=== PATIENT | female | born 1970 | race Two or more races ===

== ENCOUNTER 2020-10-26 15:52 | Outpatient (REF) | payer OTHER, SELFPAY | END 2020-10-26 15:53 | disposition home or self-care (01) | LOC: HO.LAB 15:52 | PROVIDERS: Visit Provider Internal Medicine | DX: Z20.828 Contact with and (suspected) exposure to other viral communicable diseases (principal) | CPT/HCPCS: C9803; U0003 ==

== ENCOUNTER 2024-10-31 09:30 | Outpatient (AMB) | payer OTHER, SELFPAY ==
[2024-10-31 09:35] VITALS: BP 122/64; PULSE 78; O2SAT 97; BMI 26.2
--- NOTE | 2024-10-31 09:35 | A.OFFVIS_ITS ---
Vital Signs 10/31/24 09:35 Height 5 ft 5 in Weight 157 lb 6.561 oz BMI 26.2 BP 122/64 Blood Pressure Location Lt brachial Position Sitting Pulse 78 Pulse Source Pulse Oximeter Pulse Oximetry (%) 97 Oxygen Delivery Method Room Air Intake Visit Reasons: RA/LM Intake Note: Patient is here to follow up on RA, with pain in hips and shoulders. Allergies No Known Allergies Allergy (Verified 10/31/24 09:39) HPI HPI RA/LM: Details: Bilateral elbow pain L>R Since May progressively getting worse. Activity with using her arms exacerbates pain. She is having difficulty sleeping on her left side Hands are weak. Dr. Rees took her off of SSZ last visit in 07/2024. She has more MS (1.5 hr), joint pain and hand swelling. [facility] Medical History (Updated 10/31/24 @ 21:35 by Lamont Worthington MD) Kidney stone Asthma Achilles bursitis Restless legs syndrome Fibromyalgia Diabetes Pituitary abnormality Rheumatoid arthritis Family History (Updated 10/31/24 @ 09:45 by Caty Harris CMA) Mother Diabetes Arthritis Social History (Updated 10/31/24 @ 09:46 by Caty Harris CMA) Alcohol intake: never Patient Tobacco Use Status: Never used Tobacco Review of Systems Const All systems reviewed & are unremarkable except as noted in HPI and below Physical Exam Vital Signs: Last Vital Signs Pulse 78 10/31/24 09:35 BP 122/64 10/31/24 09:35 Pulse Ox 97 10/31/24 09:35 Oxygen Delivery Method Room Air 10/31/24 09:35 BMI result Body Mass Index 26.2 Const Other: General: Comfortable CVS: RRR Respiratory: clear to auscultation bilaterally. Good respiratory effort Skin: No lesions seen MSK: Tender right wrist. No tenderness of small joints in her hands. No synovitis noticed. Tender bilateral lateral epicondyles. No pain with resisted wrist flexion or extension. Good range of motion of upper extremities. Bilateral trochanteric bursa tenderness was found good range of motion of lower extremities. Office Procedures AMB Joint Injection/Aspiration Joint Injection/Aspiration Details: Left trochanteric bursa Prep: site was prepped using aseptic technique Injected: 40 mg of, Kenalog, with 1 mL of and 1% plain lidocaine Procedure: The patient tolerated the procedure well Coding 70156 - Large joint Procedure code (CPT) selection complete Office Meds Kenalog 40 mg/mL suspension for injection Performing Provider: Lamont Worthington MD Performing Location[place] [facility] Administered by: Lamont Worthington MD on 10/31/24 10:32 Dose Route Admin Location Dispensed Lot Number Expiration Date [facility] Manager Hris 40 mg intrabursal 1 mL AP [id number] [employer] lidocaine (PF) 10 mg/mL (1 %) injection solution Performing Provider: Lamont Worthington MD Performing Location[place] [facility] Administered by: Lamont Worthington MD on 10/31/24 10:32 Dose Route Admin Location Dispensed Lot Number Expiration Date [facility] Manager Hris 10 mg Infiltration 2 mL [id number] [facility] Assessment & Plan Assessment & Plan (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 She is experiencing increased joint stiffness and hand pain since being off the sulfasalazine after seeing Dr. Rees who did not feel she had inflammatory arthritis. Code(s): M47.819 - Spondylosis without myelopathy or radiculopathy, site unspecified Category: Medical Plan: Labs for disease and drug monitoring ordered. After lab results are back, I will restart sulfasalazine 500 mg twice a day to prevent progression of her symptoms and reoccurrence of active inflammatory arthritis Return to clinic in 3 months (2) Other senior living (current) drug therapy: Code(s): Z79.899 - Other senior living (current) drug therapy Category: Medical Plan: See above (3) Lateral epicondylitis of both elbows: Comment: Bilateral suspected. We discussed conservative management Code(s): M77.11 - Lateral epicondylitis, right elbow; M77.12 - Lateral epicondylitis, left elbow Category: Medical Plan: Elbow support bands prescribed PT referral Apply diclofenac gel 1% to affected area 2 to 3 times a day Ice elbows twice a day Return to clinic in 3 months Consider cortisone injection at follow-up visit Contraindication to oral NSAIDs due to history of gastric bypass (4) Trochanteric bursitis, left hip: Comment: Uncontrolled pain Code(s): M70.62 - Trochanteric bursitis, left hip Category: Medical Plan: Trochanteric bursa injection given Orders: Orders Aspartate Amino Transferase Today Z79.899 - Other exterminator termite (current) drug therapy Erythrocyte Sedimentation Rate Today Z79.899 - Other exterminator termite (current) drug therapy Creatinine Today Z79.899 - Other exterminator termite (current) drug therapy C Reactive Protein Today Z79.899 - Other exterminator termite (current) drug therapy PT Evaluation and Treatment Today M77.11 - Lateral epicondylitis, right elbow, M77.12 - Lateral epicondylitis, left elbow Alanine Aminotransferase Today M47.819 - Spondylosis without myelopathy or radiculopathy, site unspecified, Z79.899 - Other senior living (current) drug therapy Complete Blood Count Auto Diff Today Z79.89 - Other exterminator termite (current) drug therapy Hepatitis B,C Profile Today Z.89 - Other exterminator termite (current) drug therapy T Spot TB Today Z79.89 - Other senior living (current) drug therapy AMB Joint Injection/Aspiration Today M70.62 - Trochanteric bursitis, left hip Medications: New [elbow support band] As directed 2 ea 0RF Dx: lateral epicondylitis Coding Level of Care Code Est Pt Level 4 (89145) Complex EM visit Add On G2211 Diagnoses Spondyloarthritis M47.819 Other senior living (current) drug therapy Z79. Lateral epicondylitis of both elbows M77.11; M77.12 Trochanteric bursitis, left hip M70.62 CPT Codes Coding - 61035 Large joint: 08866 - Large joint ([id number])
== END 2024-10-31 10:34 | disposition home or self-care (01) ==
PROVIDERS: Visit Provider Internal Medicine Rheumatology
DX: M47.819 Spondylosis without myelopathy or radiculopathy, site unspecified (principal); Z79.899 Other long term (current) drug therapy; M70.62 Trochanteric bursitis, left hip; M77.11 Lateral epicondylitis, right elbow; M77.12 Lateral epicondylitis, left elbow
CPT/HCPCS: 20610; 99214

== ENCOUNTER → 2024-10-31 09:30 | Outpatient (BNVA) | payer OTHER, SELFPAY | PROVIDERS: Visit Provider Internal Medicine Rheumatology | DX: M70.62 Trochanteric bursitis, left hip (principal); M77.11 Lateral epicondylitis, right elbow; M77.12 Lateral epicondylitis, left elbow; M47.819 Spondylosis without myelopathy or radiculopathy, site unspecified; Z79.899 Other long term (current) drug therapy | CPT/HCPCS: 20610; 99212; J2003; J3300 ==

== ENCOUNTER 2025-02-25 08:49 | Outpatient (REF) | payer OTHER, SELFPAY ==
--- OUTSIDE RECORDS SUMMARY | 2025-02-25 11:39 | XMS_ITS | Clinical Summary ---
Author Organization [facility] Address [address] [place] [phone] Phone Care Team Providers Care Gaming Commissioner Name Role Phone Winston Dillard MD Primary Care Provider [phone] Allergies Active Allergy Reactions Criticality Noted Date [...] Gm, 0 Refills, Maintenance, 02/19/24 8:24:00 EDT, [facility] #[id number], Partial fill upon patient request if the prescription is for a schedule II opioid drug., Topically to feet as directe... 4 Active Cholecalciferol (Vitamin D3) 1.25 MG (42762 UT) capsule Take 1 capsule by mouth [...] Replace Required Details, Route to Pharmacy Electronically, [facility] #[id number], 165, cm, 03... 3 Active ARIPiprazole (ABILIFY) [...] [facility] [address] [phone] Migel Menezes MD [facility] [address] Health Maintenance Due Date Last [...] Cancer Screening: Colonoscopy 07/11/2034 07/11/2024 [place] [id number] [employer] [facility] [facility] Care Teams Gaming Commissioner Relationship Specialty Start Date End Date Winston Dillard MD [address] [place] [phone] PCP - General Internal Medicine 07/12/24
--- OUTSIDE RECORDS SUMMARY | 2025-02-25 11:39 | XMS_ITS | Clinical Summary ---
Author Organization [facility] Address [address] [place] [address] Phone Care Team Providers Care Mushroom Press Operator Name Role Phone Jeanette Calix MD Primary Care Provider [phone] Allergies Active Allergy Reactions Criticality Noted Date [...] 2 mL 1 5 02/21/20 25 Discontin u([facility], or Other Facility Administered Medication Ordered [...] Team Description 02/24/2025 Telephone Bariatric Surgery - [address] [phone] Jamal Arriaga MD 01/07/2025 1:15 PM EST Office Visit Bariatric Surgery - [address] [phone] Jamal Arriaga MD Type 2 diabetes mellitus with obesity (CMS/HCC) (Primary Dx); Over weight 12/20/2024 Telephone Bariatric Surgery [address] [phone] Jamal Arriaga MD 12/12/2024 Telephone Bariatric Surgery [address] [phone] Jamal Arriaga MD Med Refill (zepbound) 12/09/2024 Telephone Bariatric Surgery [address] [address] Jamal Arriaga MD prior auth (Prior auth) from Last 3 Months Immunizations Name Administration Dates Next Due Moderna SARS-CoV-2 COVID-19, mRNA, LNP-S, preservative free 03/10/2021,02/10/2021 Pneumococcal polysaccharide 23 valent (Pneumovax 23) 2yo and older 07/12/2005 Td Tetanus diptheria (Tdvax) 7yo and older 07/12 Surgical History Surgery Date Site/Laterality Comments SECTION PROCEDURE: [place] DELIVERY ONLY; COMMENT: times 2 OTHER SURGICAL HISTORY PROCEDURE: [place] LIG/TRNSXJ FLP TUBE ABDL/VAG APPR UNI/BI TUBAL LIGATION PROCEDURE: HISTORICAL TUBAL LIGATION BREAST RECONSTRUCTION PROCEDURE: BREAST RECONSTRUCTION; COMMENT: reduction LAPAROSCOPIC GASTRIC BANDING 2006 PROCEDURE: LAP ADJUSTABLE GASTRIC BAND ESOPHAGOGASTRODUODENOSCOPY 2011 PROCEDURE: [place] ESOPHAGOGASTRODUODENOSCOPY TRANSORAL DIAGNOSTIC; COMMENT: normal at [facility] ESOPHAGOGASTRODUODENOSCOPY 03/05/2014 PROCEDURE: [place] ESOPHAGOGASTRODUODENOSCOPY TRANSORAL DIAGNOSTIC; COMMENT: Normal post gastric [...] AM EDT Office Visit Bariatric Surgery - [place] [address] [place] [phone] Jamal Arriaga MD [address] [place] [address] Health Maintenance Due Date Last Done Comments [...] Result * Annual BMP Blood Test (07/18/2019) [facility] Annual BMP Blood Test Abstracted [facility] Provider HEALTH MAINTENANCE Final Result * Colonoscopy (09/18/2015) [facility] Colonoscopy No Interpretation , Abstracted Anatomical Region Laterality Modality Other [facility] Provider HEALTH MAINTENANCE Final Result * (ABNORMAL) Lipid panel (06/16/2015) [facility] LDL/HDL Ratio 5(A) 0 - 4 Triglycerides 185(A) 0 - 150 mg/dL Cholesterol 181 0 - 200 mg/dL HDL 36(A) >=40 mg/dL LDL Cholesterol 108(A) 0 - 100 mg/dL Blood Venous blood specimen / Unknown [facility] Provider LAB BLOOD ORDERABLES Deja l Result * Cervical Cancer Screening: HPV (05/29/2012) [facility] Cervical Cancer Screening: HPV No Interpretation , Abstracted [facility] Provider HEALTH MAINTENANCE Final Result * Hepatitis C Screening (09/04/2001) [facility] Hepatitis C Screening Abstracted [facility] Provider HEALTH MAINTENANCE Final Result from Last 3 Months or Most Recently Relevant to Health Maintenance Insurance MEDICARE Member Subscriber Plan / Payer (Ef fective 2023-Present) Name:Cayla Linares I Relation to Subscriber:Self Name:Cayla Linares I Payer ID:[id number] Group ID:[id number] Type:Not on file Address: [place] [address] [address] [phone] Care Teams Mushroom Press Operator Relationship Specialty Start Date End Date Jeanette Calix MD [address] [place] [address] PCP - General Internal Medicine 07/18/19
--- OUTSIDE RECORDS SUMMARY | 2025-02-25 11:39 | XMS_ITS | Clinical Summary ---
Author Organization [facility] Address [address] [place] [address] Care Team Providers Care Insulator Tester Name Role Phone Unavailable Primary Care Provider [...] 2014 Imm-Zoster, Recombinant (1 of 2) 2019 [id number]-62 (3 - season) 2024 021, 02/10/2021 Imm-Influenza (#1) 2024 08/26/2020 Alcohol and Drug Screen 11/27/2024 Depression Annual Screen 11/27/2024 Cervical Ablation/Cold-Knife Conization Discontinued Cervical Cryotherapy Discontinued Colposcopy Discontinued Endometrial Biopsy Discontinued Excision/Leep Discontinued HPV Genotyping Discontinued Vaginal Pap Discontinued Vulvoscopy Discontinued [facility]
--- OUTSIDE RECORDS SUMMARY | 2025-02-25 11:39 | XMS_ITS | Encounter Summary ---
Author Organization [facility] Address [address] [place] [address] Care Team Providers Care Nutritional Services Cook Name Role Phone Jeanette Calix MD Primary Care Provider [phone] Encounter Details Date Type Department Care Team ([facility] st Contact Info) Description 02/24/2025 Telephone Bariatric Surgery - [place] [address] [facility] [address] [place] [phone] Jamal Arriaga MD [address] [address] Social History Tobacco Use Types Packs/Day Years [...] AM EDT Office Visit Bariatric Surgery - [place] [address] [facility] [address] [place] [phone] Jamal Arriaga MD [address] [facility] [address] [place] [address] documented as of this encounter Visit Diagnoses Not on filedocumented in this encounter Care Teams Nutritional Services Cook Relationship Specialty Start Date End Date Jeanette Calix MD [address] [place] [address] PCP - General Internal Medicine 07/18/19 documented as of this encounter
[2025-02-25 18:09] LABS: MANUAL DIFF FLAG NO
[2025-02-25 18:55] LABS: Alanine Aminotransferase 20 U/L (0-31); Aspartate Amino Transferase 30 U/L (5-31); C Reactive Protein 0.27 mg/dL (< or = 0.50); Estimated Glomerular Filt Rate > 60
[2025-02-25 19:01] LABS: Basophils Percent Auto 0.6 % (0-2); Eosinophils Absolute Auto 0.1 X10*3/uL (0.0-0.4); Eosinophils Percent Auto 1.7 % (0-4); Hematocrit 34.9 % (37.0-47.0); Hemoglobin 10.8 g/dl (12.0-16.0); Imm Gran Abs Auto 0.01 X10*3/uL (0.00-0.03); Imm Gran Pct Auto 0.2 % (0.0-0.4); Lymphocytes Absolute Auto 1.7 X10*3/uL (1.2-4.9); Lymphocytes Percent Auto 35.9 % (20-40); Mean Corpuscular HGB Conc 30.9 g/dl (31.0-35.0); Mean Corpuscular Hemoglobin 21.8 pg (27.0-33.0); Mean Corpuscular Volume 70.4 fL (80.0-98.0); Mean Platelet Volume 11.4 fL (9.4-12.3); Monocytes Absolute Auto 0.4 X10*3/uL (0.1-1.2); Neutrophils Absolute Auto 2.5 x10*3/uL (2.0-8.3); Neutrophils Percent Auto 53.6 % (45-73); Platelet Count 227 X10*3/uL (160-400); Red Blood Count 4.96 X10*6/uL (4.20-5.50); Red Cell Distribution Width 20.3 % (11.0-16.0); White Blood Count 4.7 X10*3/uL (4.8-10.8)
[2025-02-25 19:32] LABS: Erythrocyte Sedimentation Rate 14 MM/HR (0-20)
[2025-02-26 08:34] LABS: HBS Num1 0.07 mIU/mL (0-7.99); HBc Num1 0.11 S/CO (0.00-0.79); HBsAGNum1 0.39 S/CO (0.00-0.99); Hepatitis B Core Antibody Nonreactive (Nonreactive); Hepatitis B Surface Antigen Negative (Negative); ~HepC Num1 0.15 S/CO (0.00-0.79); ~Hepatitis B Surface Antibody NONREACTIVE (Nonreactive); ~Hepatitis C Antibody Nonreactive (Nonreactive)
[2025-02-28 17:54] LABS: TS Negative Control Passed; TS Panel A 0; TS Panel B 0; TS Positive Control Passed; TSpotTB Negative (Negative)
== END 2025-02-25 08:50 | disposition home or self-care (01) ==
LOC: HO.HKASLDS 08:49
PROVIDERS: Visit Provider Internal Medicine Rheumatology
DX: M47.819 Spondylosis without myelopathy or radiculopathy, site unspecified (principal); Z79.899 Other long term (current) drug therapy; M53.3 Sacrococcygeal disorders, not elsewhere classified; M70.61 Trochanteric bursitis, right hip; M70.62 Trochanteric bursitis, left hip
CPT/HCPCS: 36415; 82565; 84450; 84460; 85025; 85652; 86140; 86481; 86704; 86706; 86803; 87340; 99212

== ENCOUNTER 2025-02-25 08:49 | Outpatient (AMB) | payer OTHER, SELFPAY ==
--- NOTE | 2025-02-25 08:54 | MHC.OFFVIS ---
Vital Signs 02/25/25 08:55 Height 5 ft 5 in Weight 137 lb 12.623 oz BMI 22.9 BP 118/72 Blood Pressure Location Lt brachial Position Sitting Pulse 77 Pulse Source Pulse Oximeter Pulse Oximetry (%) 99 Oxygen Delivery Method Room Air Intake Visit Reasons: RA Intake Note: Patient presents for RA follow up. Patient complains of hip and shoulder pain. Patient states she could not get labs done, came in yesterday, but lab was closed. Allergies No Known Allergies Allergy (Verified 02/25/25 08:59) HPI HPI RA: Details: SHe did not start PT. She called [facility] and is waiting on appointment Lost 45lb since being on zepbound. SHe does not have pain in right wrist. Still has pain in hands. MS 15 minutes. Pain in coccyx area when sitting. Using donut cushion. She experiences constant right hip pain PFSH Medical History (Updated 02/27/25 @ 22:41 by Lamont Worthington MD) Kidney stone Asthma Achilles bursitis Restless legs syndrome Fibromyalgia Diabetes Pituitary abnormality Rheumatoid arthritis Family History (Updated 10/31/24 @ 09:45 by Caty Harris CMA) Mother Diabetes Arthritis Social History (Updated 10/31/24 @ 09:46 by Caty Harris CMA) Alcohol intake: never Patient Tobacco Use Status: Never used Tobacco Review of Systems Const All systems reviewed & are unremarkable except as noted in HPI and below Physical Exam Vital Signs: Last Vital Signs Pulse 77 02/25/25 08:55 BP 118/72 02/25/25 08:55 Pulse Ox 99 02/25/25 08:55 Oxygen Delivery Method Room Air 02/25/25 08:55 BMI result Body Mass Index 22.9 Const Other: General: Comfortable CVS: RRR Respiratory: clear to auscultation bilaterally. Good respiratory effort Skin: No lesions seen MSK: Tender left MCPs and PIPs. No synovitis noticed. Tender bilateral lateral epicondyles. No pain with resisted wrist flexion or extension. Normal range of motion of upper extremities. Bilateral trochanteric bursa tenderness was found normal range of motion of lower extremities. Tender coccyx. 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 She is experiencing increased joint stiffness and hand pain since being off the sulfasalazine. Code(s): M47.819 - Spondylosis without myelopathy or radiculopathy, site unspecified Category: Medical Plan: Labs prior to starting sulfasalazine ordered After lab results are back, I will send prescription for sulfasalazine 1000 mg b.i.d. three-month supply Return to clinic in 3 months (2) Coccydynia: Code(s): M53.3 - Sacrococcygeal disorders, not elsewhere classified Category: Medical Plan: PT ordered Continue to use donut cushion (3) Greater trochanteric bursitis of both hips: Comment: Right trochanteric bursa pain is greater than left. Code(s): M70.61 - Trochanteric bursitis, right hip; M70.62 - Trochanteric bursitis, left hip Category: Medical Plan: Patient received right trochanteric bursa cortisone injection this visit Return to clinic in 3 months Orders: Orders AMB Joint Injection/Aspiration 02/25/25 M70.61 - Trochanteric bursitis, right hip, M70.62 - Trochanteric bursitis, left hip PT Evaluation and Treatment Today M53.3 - Sacrococcygeal disorders, not elsewhere classified Medications: New lidocaine (PF) 10 mg Infiltration ONCE 1 mL 0RF M70.61 - Trochanteric bursitis, right hip, M70.62 - Trochanteric bursitis, left hip Kenalog (triamcinolone acetonide) 40 mg intrabursal ONCE 1 mL 0RF NS M70.61 - Trochanteric bursitis, right hip, M70.62 - Trochanteric bursitis, left hip Coding Level of Care Code Est Pt Level 4 (56917) Complex EM visit Add On G2211 Diagnoses Spondyloarthritis M47.819 Coccydynia M53.3 Greater trochanteric bursitis of both hips M70.61; M70.62 Time Spent (min) 35
[2025-02-25 08:55] VITALS: BP 118/72; PULSE 77; O2SAT 99; BMI 22.9
--- OUTSIDE RECORDS SUMMARY | 2025-02-25 09:20 | XMS_ITS | Clinical Summary ---
Author Organization [address] [facility] Address [address] [place] [address] Phone Care Team Providers Care Assistant Associate Full Professor Name Role Phone Jeanette Calix MD Primary Care Provider [phone] Allergies Active Allergy Reactions Criticality Noted Date Comments Cabergoline High 09/22/2009 Other Reaction(s): Myalgia and Joint Pain Medications ALBUTEROL INHL Inhale into the lungs. Active fluticasone propionate (FLOVENT INHL) Inhale into the lungs. Active bromocriptine (PARLODEL) 2.5 mg tablet 9 Active cholecalciferol (VITAMIN D-3) 1,250 mcg (50,000 unit) capsule Take 1 Capsule by mouth once a week. 4 Active cyanocobalamin, vitamin B-12, 1,000 mcg tablet, sublingual Place 1 Tablet under the tongue daily. 4 Active doxepin (SINEquan) 150 mg capsule Take 150 mg by mouth at bedtime. Active levothyroxine (SYNTHROID, LEVOTHROID) 125 mcg tablet Take 1 Tab by mouth daily. Take 1.5 tablets on Monday 5 Active linaCLOtide (Linzess) 290 mcg capsule 9 Active LORazepam (ATIVAN) 0.5 mg tablet Take 0.5 mg by mouth at bedtime as needed. Active metFORMIN (GLUCOPHAGE) 500 mg tablet Take 1 Tab by mouth daily. 5 Active ondansetron ODT (ZOFRAN-ODT) 4 mg disintegrating tablet 9 Active sertraline (ZOLOFT) 100 mg tablet Take 100 mg by mouth daily. Active sucralfate (CARAFATE) 1 gram tablet Take 1 Tablet by mouth 4 times daily for 360 days. 4 05/09/20 25 Active tirzepatide, weight loss, (Zepbound) 5 mg/0.5 mL injectionIndicatio ns:Type 2 diabetes mellitus with obesity (CMS/HCC),Over weight Inject 0.5 mL (5 mg total) under the skin every 7 (seven) days. 2 mL 1 5 04/18/20 25 Active tirzepatide, weight loss, (Zepbound) 5 mg/0.5 mL injectionIndicatio ns:Type 2 diabetes mellitus with obesity (CMS/HCC),Over weight Inject 0.5 mL (5 mg total) under the skin every 7 (seven) days. 2 mL 1 5 02/21/20 25 Discontin u([facility], or Other Facility Administered Medication Ordered Dose Route Frequency Start Date End Date Status tirzepatide (weight loss) (ZEPBOUND) injection 5 mgIndications:Over weight 5 mg subQ Every 7 days 01/03/2025 02/21/2025 Discontinued Active Problems Problem Noted Date Diagnosed Date Asthma 11/07/2024 Abdominal wall mass of right upper quadrant 02/2020 Localized edema 04/30/2020 Scar of abdominal skin 02/13/2018 Morbid obesity 12/05/2013 Overview (11/07/2024): BMI 44.01 on 12/24/12. 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 Hypothyroidism 11/17/2005 Controlled type 2 diabetes mellitus without comp lication 11/08/2005 Overview (11/07/2024): Diagnosed 2004 Thyrotoxicosis 11/08/2005 Encounters Date Type Department Care Team Description 02/24/2025 Telephone Bariatric Surgery - [address] [phone] Jamal Arriaga MD 01/07/2025 1:15 PM EST Office Visit Bariatric Surgery - [address] [phone] Jamal Arriaga MD Type 2 diabetes mellitus with obesity (CMS/HCC) (Primary Dx); Over weight 12/20/2024 Telephone Bariatric Surgery [address] [phone] Jamal Arriaga MD 12/12/2024 Telephone Bariatric Surgery [address] [phone] Jamal Arriaga MD Med Refill (zepbound) 12/09/2024 Telephone Bariatric Surgery [address] [phone] Jamal Arriaga MD prior auth (Prior auth) from Last 3 Months Immunizations Name Administration Dates Next Due Moderna SARS-CoV-2 COVID-19, mRNA, LNP-S, preservative free 03/10/2021,02/10/2021 Pneumococcal polysaccharide 23 valent (Pneumovax 23) 2yo and older 07/12/2005 Td Tetanus diptheria (Tdvax) 7yo and older 07/12 Surgical History Surgery Date Site/Laterality Comments SECTION PROCEDURE: MN DELIVERY ONLY; COMMENT: times 2 OTHER SURGICAL HISTORY PROCEDURE: MN LIG/TRNSXJ FLP TUBE ABDL/VAG APPR UNI/BI TUBAL LIGATION PROCEDURE: HISTORICAL TUBAL LIGATION BREAST RECONSTRUCTION PROCEDURE: BREAST RECONSTRUCTION; COMMENT: reduction LAPAROSCOPIC GASTRIC BANDING 2006 PROCEDURE: LAP ADJUSTABLE GASTRIC BAND ESOPHAGOGASTRODUODENOSCOPY 2011 PROCEDURE: MN ESOPHAGOGASTRODUODENOSCOPY TRANSORAL DIAGNOSTIC; COM[place]: [place] [facility] [place] 03/05/2014 PROCEDURE: MN ESOPHAGOGASTRODUODENOSCOPY TRANSORAL DIAGNOSTIC; COMMENT: Normal post gastric bypass appearance Medical History Medical History Date Comments Unspecified asthma(493.90) DX:Un specified asthma(493.90) Other anterior pituitary disorders 07/24/2006 DX:Other anterior pituitary disorders Hypercholesteremia 08/28/2008 DX:Hyperchole steremia Type II or unspecified type diabetes mellitus without mention of complication, not stated as uncontrolled 11/08/2005 DX:Type II or unspecified ty pe diabetes mellitus without mention of complication, not stated as uncontrolled Heart disease, unspecified DX:He art disease, unspecified Thyrotoxicosis without menti on of goiter or other cause, without mention of thyrotoxic crisis or storm 11/08/2005 DX:Thyrotoxicosis withou t mention of goiter or other cause, without mention of thyrotoxic crisis or storm Unspecified hypothyroidism 11/17/2005 DX:Un specified hypothyroidism LAP-BAND surgery status 06/09/2011 DX:LAP-B AND surgery status S/P gastric bypass 06/16/2015 DX:S/P gastri c bypass Family History Medical History Relation Name Comments Blindness Brother Diabetes Brother Diabetes Father Thyroid disease Mother Thyroid disease Sister Cataracts Neg Hx Glaucoma Neg Hx Macular degeneration Neg Hx Strabismus Neg Hx Relation Name Status Comments Brother Alive Father Mother Sister Social History Tobacco Use Types Packs/Day Years Used Date Smoking Tobacco: Never Smokeless Tobacco: Never Alcohol Use Standard Drinks/Week Comments No 0 (1 standard drink = 0.6 oz pur e alcohol) Comments Unknown Sex and Gender Information Value Date Recorded Sex Assigned at Not on file Legal Sex Female 9:10 AM EST Gender Identity Not on file Sexual Orientation Not on file Obstetrics History Last Filed Vital Signs Vital Sign Reading Time Taken Comments Blood Pressure 105/67 01/07/2025 1:31 PM EST Pulse 76 01/07/2025 1:31 PM EST Temperature 36.6 ??C (97.8 ??F) 01/07/2025 1:31 PM ES T Respiratory Rate - - Oxygen Saturation - - Inhaled Oxygen Concentration - - Weight 66.2 kg (146 lb) 01/07/2025 1:31 PM EST Height 165.1 cm (5' 5 ) 01/07/2025 1:31 PM EST Body Mass Index 24.3 01/07/2025 1:31 PM EST Plan of Treatment Upcoming Encounters Date Type Department Care Team (Late st Contact Info) Description 07/15/2025 9:15 AM EDT Office Visit Bariatric Surgery - [place] [address] [place] [phone] Jamal Arriaga MD [address] [place] [address] Health Maintenance Due Date Last Done Comments Breast Cancer Screening 1969 Diabetes: Annual Foot Exam 1979 Diabetes: Annual Retina Eye Exam 1979 Hepatitis B Vaccines (1 of 3 - 19+ 3-dose series) 1988 Pneumococcal Vaccine: 50+ Years (2 of 2 - PCV) 07/12/2006 07/12/2005 Pneumococcal Vaccine: Pediatrics (0 to 5 Years) and At-Risk Patients (6 to 64 Years) (2 of 2 - PCV) 07/12/2006 07/12/2005 Cervical Cancer Screening: Pap Smear 05/29/2015 05/29/2012, 05/29/2012 Zoster Vaccines (1 of 2) 2019 Diabetes: Annual GFR (Glomerular Filtration Rate) 07/18/2020 07/18/2019 Cholesterol Screening (Lipid Panel) 10/30/2022 06/16/2015 Depression Screening 10/30/2022 HIV Screening 10/30/2022 Medicare Annual Wellness Visit 10/30/2022 Social Influencers of Health Screening 10/30/2022 Diabetes: Annual Urine Albumin-Creatinine Ratio (uACR) 11/12/2022 04/30/2020 Diabetes: Blood Sugar Control Test (HGBA1C) 04/16/2024 10/17/2023 COVID-19 Vaccine ( season) 2024 10/04/2021, 03/10/2021, 02/10/2021 Influenza Vaccine (#1) 2024 2, 08/27/2022, 11/15/2021, Additional history exists Colorectal Cancer Screening: Colonoscopy 09/18/2025 09/18/2015 DTaP,Tdap,and Td Vaccines (3 - Td or Tdap) 01/14/2026 01/14/2016, 07/12/2005 Hepatitis C Screening Completed 09/04/2001 HIB Vaccines Aged Out No longer eligi ble based on patient's age to complete this topic HPV Vaccines Aged Out No longer eligi ble based on patient's age to complete this topic Hepatitis A Vaccines Aged Out No long er eligible based on patient's age to complete this topic IPV Vaccines Aged Out No longer eligi ble based on patient's age to complete this topic MMR Vaccines Aged Out No longer eligi ble based on patient's age to complete this topic Meningococcal ACWY Vaccine Aged Out N o longer eligible based on patient's age to complete this topic Meningococcal B Vacine Aged Out No lo nger eligible based on patient's age to complete this topic RSV Immunization Patients Under 20 months Aged Out No longer eligible based on patient's age to complete this topic Varicella Vaccines Aged Out No longer eligible based on patient's age to complete this topic Procedures Procedure Name Priority Date/Time Associated Diagnosis Comments HEMOGLOBIN A1C Routine 10/17/2023 URINE ALBUMIN CREATININE RATIO Routine 04/30/2020 ANNUAL BMP BLOOD TEST Routine 07/18/2019 COLONOSCOPY Routine 09/18/2015 LIPID PANEL Routine 06/16/2015 HPV Routine 05/29/2012 HEPATITIS C SCREENING Routine 09/04/2001 from Last 3 Months or Most Recently Relevant to Health Maintenance Results * Hemoglobin A1c (10/17/2023) Hemoglobin A1C 5.9 <=6.5 % Blood Venous blood specimen / Unknown us Historical Provider LAB BLOOD ORDERABLES Deja l Result * Urine Albumin Creatinine Ratio (04/30/2020) Urine Albumin Creatinine Ratio Abstracted us Historical Provider HEALTH MAINTENANCE Final Result * Annual BMP Blood Test (07/18/2019) [facility] Annual BMP Blood Test Abstracted [facility] Provider HEALTH MAINTENANCE Final Result * Colonoscopy (09/18/2015) [facility] Colonoscopy No Interpretation , Abstracted Anatomical Region Laterality Modality Other [facility] Provider HEALTH MAINTENANCE Final Result * (ABNORMAL) Lipid panel (06/16/2015) [facility] LDL/HDL Ratio 5(A) 0 - 4 Triglycerides 185(A) 0 - 150 mg/dL Cholesterol 181 0 - 200 mg/dL HDL 36(A) >=40 mg/dL LDL Cholesterol 108(A) 0 - 100 mg/dL Blood Venous blood specimen / Unknown [facility] Provider LAB BLOOD ORDERABLES Deja l Result * Cervical Cancer Screening: HPV (05/29/2012) [facility] Cervical Cancer Screening: HPV No Interpretation , Abstracted [facility] Provider HEALTH MAINTENANCE Final Result * Hepatitis C Screening (09/04/2001) [facility] Hepatitis C Screening Abstracted [facility] Provider HEALTH MAINTENANCE Final Result from Last 3 Months or Most Recently Relevant to Health Maintenance Insurance MEDICARE Member Subscriber Plan / Payer (Ef fective 2023-Present) Name:Cayla Linares I Relation to Subscriber:Self Name:Cayla Linares I Payer ID:[id number] Group ID:[id number] Type:Not on file Address: [place] [address] [address] [id number] Care Teams Assistant Associate Full Professor Relationship Specialty Start Date End Date Jeanette Calix MD [address] [place] [address] PCP - General Internal Medicine 07/18/19
--- OUTSIDE RECORDS SUMMARY | 2025-02-25 09:20 | XMS_ITS | Encounter Summary ---
Author Organization [facility] Address [address] [place] [address] Care Team Providers Care Clinical Support Specialist Name Role Phone Jeanette Calix MD Primary Care Provider [phone] Encounter Details Date Type Department Care Team ([facility] st Contact Info) Description 02/24/2025 Telephone Bariatric Surgery - [place] [address] [facility] [address] [place] [phone] Jamal Arriaga MD [address] [address] Social History Tobacco Use Types Packs/Day Years Used Date Smoking Tobacco: Never Smokeless Tobacco: Never Alcohol Use Standard Drinks/Week Comments No 0 (1 standard drink = 0.6 oz pur e alcohol) Comments Unknown Sex and Gender Information Value Date Recorded Sex Assigned at Not on file Legal Sex Female 9:10 AM EST Gender Identity Not on file Sexual Orientation Not on file documented as of this encounter Progress Notes * Dipika Ball - 02/24/2025 8:51 AM EDT Patient states pharmacy is telling her she needs a prior authorization for Zepbound. I see an approval already good through May Should patient be on 5 mg or titrate up to 7.5 ? Please advise. documented in this encounter Plan of Treatment Upcoming Encounters Date Type Department Care Team (Late st Contact Info) Description 07/15/2025 9:15 AM EDT Office Visit Bariatric Surgery - [place] [address] [facility] [address] [place] [phone] Jamal Arriaga MD [address] [facility] [address] [place] [address] documented as of this encounter Visit Diagnoses Not on filedocumented in this encounter Care Teams Clinical Support Specialist Relationship Specialty Start Date End Date Jeanette Calix MD [address] [place] [address] PCP - General Internal Medicine 07/18/19 documented as of this encounter
--- OUTSIDE RECORDS SUMMARY | 2025-02-25 09:20 | XMS_ITS | Patient Health Record ---
Author Organization [employer] Address [address] [place] [address] Support Name Relationship Address Phone Cayla Linares Guarantor Unknown [phone] Allergies Allergen (clinical drug ingredient) Drug/Non Drug Allergy documented on EMR Reaction Allergy Type Onset Date Status morphine Morphine Unknown Drug Allergy Active Reason For Referral No Information Medications Medication SIG (Take, Route, Frequency, Duration) Notes Start Date End Date Status Doxepin HCl 150 MG 1 capsule at bedtime Orally Once a day Active Bromocriptine Mesylate 2.5 MG 1 tablet Orally twice a week Active DULoxetine HCl 30 MG 1 capsule Orally Tw ice a day Active Levothyroxine Sodium 137 MCG 1 tablet in the morning on an empty stomach Orally Once a day Active Gabapentin 600 MG 1 tablet Orally twic e a day as needed Active Amoxicillin 40 mg BID Active Naproxen 500 MG 1 tablet with food o r milk as needed Orally once a day Active Immunizations Vaccine Route Administration Date Status Comme nts COVID Unknown 02/07/2021 Administered Moderna COVID Unknown 03/04/2021 Administered Moderna Social History Tobacco Use: Social History Observation Description Date Details (start date - stop date) Never Smoker NA - NA Tobacco Use/Smoking Question Answer Notes Are you a nonsmoker Alcohol Screen (Audit-C) Question Answer Notes Did you have a drink containing alcohol in the p ast year? No Points 0 Interpretation Negative Problems Problem Type SNOMED Code ICD Code Onset Dates Problem Status W/U Status Risk Notes Problem Hypothyroidism (84445026) Hypothyroidism, unspecified (E03.9) Active confirmed Problem Insomnia (171788708) Insomnia, unspecified (G47.00) Active confirmed Problem Body mass index 30.00 to 34.99 (840635185860105) Body mass index (BMI) 31.0-31.9, adult (Z68.31) Active confirmed Problem Body mass index 40+ - morbidly obese (314468957) Body mass index [BMI] 50.0-59.9, adult (Z68.43) Active confirmed Plan Of Treatment No Information Insurance Providers Payer Name Payer Address Payer Phone Subscriber Number Group Number Insured Name Patient Relationship to Insured Coverage Start Date Coverage End Date [facility] [address] [place], [place] [phone] [id number] Cayla Linares Self - patient is the insured Medical (General) History Medical History History ICD Code fibromyalgia insomnia pituitary microadenoma and sees Dr. Romina milligan at endocrinology anxiety/depression hypothyroidism right Achilles tendon injury Surgical History Surgery Date(Month/Year) jonatan landry gastric bypass by Dr. Arriaga 2012
--- OUTSIDE RECORDS SUMMARY | 2025-02-25 09:20 | XMS_ITS | Clinical Summary ---
Author Organization [facility] Address [address] [place] [address] Care Team Providers Care Associate Engineer Name Role Phone Unavailable Primary Care Provider Unavailabl e Source Comments PLEASE NOTE, if this patient is a minor, it may be UNLAWFUL to discuss sensitive information that is contained in these records (such as FAMILY PLANNING, MENTAL HEALTH or SUBSTANCE ABUSE) with the minor patient's parent or other person without the patient's specific authorization.[facility] Immunizations Immunization Administration Dates Next Due Moderna COVID-19 Vaccine, re d cap blue label, 12+ Primary Series 03/10/2021,02/10/2021 Social History Tobacco Use Types Packs/Day Years Used Date Smoking Tobacco: Never Assessed Social Connections Answer Date Recorded Social Connections and Isolation 0 02/10/2021 Financial Resource Strain Answer Date R ecorded Financial Resource Strain 0 2020 Stress Answer Date Recorded Stress 0 02/10/2021 Physical Activity Answer Date Recorded Physical Activity 0 02/10/2021 Food Insecurity Answer Date Recorded Food 0 02/10/2021 Transportation Needs Answer Date Record ed Transportation 0 02/10/2021 Housing Stability Answer Date Recorded Housing 0 02/10/2021 Safety and Environment Answer Date Demarco rded Safety 0 02/10/2021 Utilities Answer Date Recorded Utilities 0 02/10/2021 Employment Answer Date Recorded Employment 0 02/10/2021 Comments Unknown Sex and Gender Information Value Date Recorded Sex Assigned at Not on file Legal Sex Female 10:18 AM PST Gender Identity Not on file Sexual Orientation Not on file Plan of Treatment Health Maintenance Due Date Last Done Comments Anxiety Screening 1969 Diabetes Screening 1969 HPV Screening 1969 Hepatitis C Screening 1969 Lipid Screening 1969 Pap + HPV 1969 Tobacco Screening 1969 HIV Screening 1984 Hypertension Screening (#1) 1987 Imm-Hepatitis B (1 of 3 - 19 + 3-dose series) 1988 Cervical Cancer Screening 1990 Pap Smear 1990 Imm-DTaP/Tdap/Td (1 - Tdap) 07/13/2005 07/12/2005 Breast Cancer Screening (Mammogram) 2009 CT Colonography 2014 Colonoscopy 2014 Colorectal Cancer Screening 2014 FIT/gFOBT 2014 Fecal DNA 2014 Flexible Sigmoidoscopy 2014 Imm-Zoster, Recombinant (1 of 2) 2019 Dla-ESURR-05 (3 - season) 2024 021, 02/10/2021 Imm-Influenza (#1) 2024 08/26/2020 Alcohol and Drug Screen 11/27/2024 Depression Annual Screen 11/27/2024 Cervical Ablation/Cold-Knife Conization Discontinued Cervical Cryotherapy Discontinued Colposcopy Discontinued Endometrial Biopsy Discontinued Excision/Leep Discontinued HPV Genotyping Discontinued Vaginal Pap Discontinued Vulvoscopy Discontinued [facility]
--- OUTSIDE RECORDS SUMMARY | 2025-02-25 09:21 | XMS_ITS | Clinical Summary ---
Author Organization [facility] Address [address] [place] [phone] Phone Care Team Providers Care Utility Operator Yarn Name Role Phone Winston Dillard MD Primary Care Provider [phone] Allergies Active Allergy Reactions Criticality Noted Date Comments Morphine Rash Low 07/12/2024 Other Reaction(s): Itchy, Shaky Oxycodone 07/12/2024 Oxycodone-Acetaminophe n Nausea And Vomiting 07/12/2024 Tramadol Nausea And Vomiting 07/12/2024 Medications tamsulosin (FLOMAX) 0.4 MG 24 hr capsule Take 0.4 mg by mouth 1 (one) time each day 4 Active sulfaSALAzine (AZULFIDINE) 500 MG tablet Take 1,000 mg by mouth in the morning and 1,000 mg in the evening. 4 Active sucralfate (CARAFATE) 1 g tablet Take 1 g by mouth in the morning and 1 g at noon and 1 g in the evening and 1 g before bedtime. 4 Active Wegovy 1 MG/0.5ML solution auto-injector ADMINISTER 1 MG UNDER THE SKIN 1 TIME A WEEK FOR 4 DOSES 4 Active Semaglutide (Rybelsus) 14 MG tablet 30 each, 0 Refill(s), TAKE 1 TABLET BY MOUTH DAILY, 0 Refills, 02/19/24 8:22:00 EDT, Partial fill upon patient request if the prescription is for a schedule II opioid drug. 4 Active Trulance 3 MG tablet TAKE 1 TABLET BY MOUTH DAILY. REPLACES LINZESS Active ondansetron (ZOFRAN) 8 MG tablet Take 8 mg by mouth in the morning and 8 mg at noon and 8 mg in the evening. 4 Active omeprazole (PriLOSEC) [address] capsule Take 40 mg by mouth in the morning and 40 mg in the evening. 4 Active naproxen (NAPROSYN) 500 MG tablet Take 500 mg by mouth in the morning and 500 mg in the evening. Active methocarbamol (ROBAXIN) 750 MG tablet TAKE 1 TABLET BY MOUTH 3 TIMES A DAY FOR 10 DAYS 4 Active meclizine (ANTIVERT) 25 MG tablet Take 25 mg by mouth 3 (three) times a day if needed for dizziness 4 Active LORazepam (ATIVAN) 0.5 MG tablet Take 0.25 mg by mouth 4 Active levothyroxine (SYNTHROID, LEVOTHROID) 200 MCG tablet Take 200 mcg by mouth 4 Active gabapentin (NEURONTIN) 600 MG tablet Take 600 mg by mouth in the morning and 600 mg at noon and 600 mg in the evening. 4 Active fluticasone (FLONASE) 50 MCG/ACT nasal spray Administer into affected nostril(s) 3 Active ferrous sulfate 325 (65 Fe) MG EC tablet Take 1 tablet by mouth in the morning and 1 tablet at noon and 1 tablet in the evening. 4 Active doxepin (SINEquan) 150 MG capsule Take 150 mg by mouth at bed time Active Diclofenac Sodium (Voltaren) 1 % gel Apply 1 application. topically 1 Active Cyanocobalamin (Vitamin B-12) [address] 1 TABLET UNDER THE TONGUE DAILY 4 Active Colloidal Oatmeal (Eucerin Eczema Relief) 1 % cream See Instructions, Topically to feet as directed, # 454 Gm, 0 Refills, Maintenance, 02/19/24 8:24:00 EDT, [facility] #[id number], Partial fill upon patient request if the prescription is for a schedule II opioid drug., Topically to feet as directe... 4 Active Cholecalciferol (Vitamin D3) 1.25 MG (72587 UT) capsule Take 1 capsule by mouth 1 (one) time per week 4 Active busPIRone (BUSPAR) 15 MG tablet 60 each, 0 Refill(s), TAKE 1 TABLET BY MOUTH TWICE DAILY, 0 Refills, 09/25/23 8:18:00 EDT, Partial fill upon patient request if the prescription is for a schedule II opioid drug. 3 Active bromocriptine (PARLODEL) 2.5 MG tablet See Instructions, TAKE 1/2 TABLET BY MOUTH EVERY THIRD DAY, 90 day supply, # 15 tablet, Refills 3, Tot. Refills 3, 05/23/23 12:19:00 EDT, Instructions Replace Required Details, Route to Pharmacy Electronically, [facility] #[id number], 165, cm, 03... 3 Active ARIPiprazole (ABILIFY) 2 MG tablet Take 4 mg by mouth 1 (one) time each day in the morning Active BROMOCRIPTINE MESYLATE PO Take 0.25 mg by mouth every 3 (three) days Active Active Problems Problem Noted Date Diagnosed Date Toe swelling 07/11/2024 Slow transit constipation 07/11/2024 Restless legs 07/11/2024 Pituitary adenoma 07/11/2024 Perimenopausal atrophic vaginitis 07/11/2024 Obese class I 07/11/2024 Body mass index 40+ - severely obese 07/11/2024 Obese class I 07/11/2024 Nausea 07/11/2024 Insomnia 07/11/2024 Hypothyroidism 07/11/2024 History of colonoscopy 07/11/2024 History of calculus of kidney 07/11/2024 Hematochezia 07/11/2024 Fibromyalgia 07/11/2024 Fatigue 07/11/2024 Family history of sleep apnea 07/11/2024 Anemia 07/11/2024 Endometrium thickened 08/25/2017 Overview (07/11/2024): EMB = disordered endometrium only; started on micronor 09/02/17 Family History Medical History Relation Comments Nephrolithiasis Brother Diabetes Mother Cancer Mother's Sister Relation Status Comments Brother Mother Mother's Sister Social History Tobacco Use Types Packs/Day Years Used Date Smoking Tobacco: Never Assessed Comments Unknown Sex and Gender Information Value Date Recorded Sex Assigned at Not on file Legal Sex Female 11:18 AM EDT Gender Identity Not on file Sexual Orientation Not on file Last Filed Vital Signs Vital Sign Reading Time Taken Comments Blood Pressure 134/88 11/15/2024 9:27 AM EST Pulse 96 11/15/2024 9:27 AM EST Temperature - - Respiratory Rate - - Oxygen Saturation - - Inhaled Oxygen Concentration - - Weight 66.2 kg (146 lb) 11/15/2024 9:27 AM EST Height - - Body Mass Index - - Plan of Treatment Upcoming Encounters Date Type Department Care Team (Late st Contact Info) Description 03/27/2025 3:30 PM EDT [facility] [address] [phone] Migel Menezes MD [facility] [phone] Health Maintenance Due Date Last Done Comments Breast Cancer Screening 1969 Hepatitis B Vaccine (1 of 3 - 19+ 3-dose series) 1988 Pneumococcal Vaccine: Pediat rics (0 to 5 Years) and At-Risk Patients (6 to 64 Years) (2 of 2 - PCV) 07/12/2006 07/12/2005 Colorectal Cancer Screening: Annual FOBT 2018 Colorectal Cancer Screening: Sigmoidoscopy 2018 Influenza Vaccine (#1) 2024 2, 11/15/2021, 01/27/2020 Diabetes: Hemoglobin A1C 11/15/2024 10/17/2023 Diabetes: Ophthalmology Exam 11/15/2024 Diabetes: Pedal Pulse Checked 11/15/2024 Diabetes: Sensory Foot Exam 11/15/2024 Diabetes: Visual Foot Exam 11/15/2024 Colorectal Cancer Screening: Colonoscopy 07/11/2034 07/11/2024 [place] [id number] [employer] [facility] Care Teams Utility Operator Yarn Relationship Specialty Start Date End Date Winston Dillard MD [address] [place] [phone] PCP - General Internal Medicine 07/12/24
== END 2025-02-25 09:51 | disposition home or self-care (01) ==
LOC: HO.RHES 08:50
PROVIDERS: Visit Provider Internal Medicine Rheumatology
DX: M47.819 Spondylosis without myelopathy or radiculopathy, site unspecified (principal); M53.3 Sacrococcygeal disorders, not elsewhere classified; M70.61 Trochanteric bursitis, right hip; M70.62 Trochanteric bursitis, left hip
CPT/HCPCS: 99214; G2211

== ENCOUNTER 2025-05-27 10:35 | Outpatient (AMB) | payer OTHER, SELFPAY ==
--- NOTE | 2025-05-27 10:36 | A.OFFVIS_ITS ---
Vital Signs 05/27/25 10:37 Height 5 ft 5 in Weight 128 lb BMI 21.3 BP 100/80 Blood Pressure Location Lt brachial Position Sitting Pulse 78 Pulse Oximetry (%) 100 Oxygen Delivery Method Room Air Intake Visit Reasons: 3 Months Intake Note: Patient presents for RA follow up. Allergies No Known Allergies Allergy (Verified 05/27/25 10:41) HPI HPI 3 Months: Details: R hip pain started a week ago. Left hip pain has returned. She is tired from limping. MS 30 min She continues to have elbow back, coccyc pain. [facility] Medical History (Updated 05/27/25 @ 20:34 by Lamont Worthington MD) Kidney stone Asthma Achilles bursitis Restless legs syndrome Fibromyalgia Diabetes Pituitary abnormality Rheumatoid arthritis Family History (Updated 10/31/24 @ 09:45 by Caty Harris CMA) Mother Diabetes Arthritis Social History (Updated 10/31/24 @ 09:46 by Caty Harris CMA) Alcohol intake: never Patient Tobacco Use Status: Never used Tobacco Physical Exam Vital Signs: Last Vital Signs Pulse 78 05/27/25 10:37 BP 100/80 05/27/25 10:37 Pulse Ox 100 05/27/25 10:37 Oxygen Delivery Method Room Air 05/27/25 10:37 BMI result Body Mass Index 21.3 Const Other: General: Comfortable CVS: RRR Respiratory: clear to auscultation bilaterally. Good respiratory effort Skin: No lesions seen MSK: Tender right MCPs. No synovitis noticed. Tender bilateral lateral epicondyles. No pain with resisted wrist flexion or extension. Normal range of motion of upper extremities. Bilateral trochanteric bursa tenderness was found. normal range of motion of lower extremities. Office Procedures AMB Joint Injection/Aspiration Joint Injection/Aspiration Details: Bilateral trochanteric bursa Prep: site was prepped using aseptic technique Injected into each site: 40 mg of, Kenalog, with 1 mL of and 1% plain lidocaine Procedure: Informed verbal consent was obtained. The patient tolerated the procedure well. Postprocedure protocol was discussed with patient. Coding 80563 - Bilateral Large Joint Procedure code (CPT) selection complete AMB Joint Injection/Aspiration Coding 94918 - Bilateral Large Joint Procedure code (CPT) selection complete Office Meds lidocaine (PF) 10 mg/mL (1 %) injection solution Performing Provider: Lamont Worthington MD Performing Location: [facility] [place] [facility] Administered by: Lamont Worthington MD on 05/27/25 11:13 Dose Route Admin Location Dispensed Lot Number Expiration Date [employer] 10 mg Infiltration 2 mL [id number] 04/26/25 81641-976-49 [employer] Total Dispensed Waste 2 mL 50 % Kenalog 40 mg/mL suspension for injection Performing Provider: Lamont Worthington MD Performing Location: [facility] – [place] [facility] Administered by: Lamont Worthington MD on 05/27/25 11:13 Dose Route Admin Location Dispensed Lot Number Expiration Date [employer] 40 mg intrabursal 1 mL [id number] 06/26/27 85893-004-27 [employer] Total Dispensed Waste 1 mL 0 % lidocaine (PF) 10 mg/mL (1 %) injection solution Performing Provider: Lamont Worthington MD Performing Location: [facility] – [place] [facility] Administered by: Lamont Worthington MD on 05/27/25 11:13 Dose Route Admin Location Dispensed Lot Number Expiration Date [employer] 10 mg Infiltration 2 mL [id number] 04/26/27 38708-794-84 [employer] Total Dispensed Waste 2 mL 50 % Kenalog 40 mg/mL suspension for injection Performing Provider: Lamont Worthington MD Performing Location: [facility] – [place] [facility] Administered by: Lamont Worthington MD on 05/27/25 11:13 Dose Route Admin Location Dispensed Lot Number Expiration Date [facility] [employer] 40 mg intrabursal 1 mL [id number] 06/26/27 29801-391-69 [employer] Total Dispensed Waste 1 mL 0 % Assessment & Plan Assessment & Plan (1) Spondyloarthritis: Comment: Joint pain and stiffness is better controlled with being on sulfasalazine. She continues to have MCP pain on exam. Rheumatology History of asymmetric inflammatory arthritis previously controlled on sulfasalazine. She is experiencing increased joint stiffness and hand pain since being off the sulfasalazine (Dr. Rees d/c 2023). SSZ restarted 02/2024- Code(s): M47.819 - Spondylosis without myelopathy or radiculopathy, site unspecified Category: Medical Plan: Increase sulfasalazine 1000 mg b.i.d. Labs for drug monitoring on high-risk medication ordered Return to clinic in 3 months (2) Other dedicated intermodal truck driver (current) drug therapy: Code(s): Z79.899 - Other penitentiary (current) drug therapy Category: Medical Plan: See above (3) Coccydynia: Comment: Uncontrolled pain. Chronic Code(s): M53.3 - Sacrococcygeal disorders, not elsewhere classified Category: Medical Plan: PT ordered last visit. She will try to schedule visit today. Continue to use donut cushion (4) Greater trochanteric bursitis of both hips: Comment: Pain is uncontrolled. Code(s): M70.61 - Trochanteric bursitis, right hip; M70.62 - Trochanteric bursitis, left hip Category: Medical Plan: Patient received bilateral trochanteric bursa cortisone injection this visit Return to clinic in 3 months (5) Lateral epicondylitis of both elbows: Comment: Bilateral suspected. We discussed conservative management Code(s): M77.11 - Lateral epicondylitis, right elbow; M77.12 - Lateral epicondylitis, left elbow Category: Medical Plan: Elbow support band prescribed PT prescribed 10/2024. I have changed order to occupational therapy. Return to clinic in 3 months Orders: Orders Alanine Aminotransferase Today Z79.899 - Other dedicated intermodal truck driver (current) drug therapy Creatinine Today Z79.899 - Other dedicated intermodal truck driver (current) drug therapy AMB Joint Injection/Aspiration Today M70.61 - Trochanteric bursitis, right hip, M70.62 - Trochanteric bursitis, left hip OT Evaluation and Treatment Today M77.11 - Lateral epicondylitis, right elbow, M77.12 - Lateral epicondylitis, left elbow Complete Blood Count Man Dif Today Z79.899 - Other dedicated intermodal truck driver (current) drug therapy Aspartate Amino Transferase Today Z79.899 - Other penitentiary (current) drug therapy C Reactive Protein Today Z79.899 - 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 Increase dose 1 g (2 x 500 mg) PO BID 360 tabs 0RF 90 days Coding Level of Care Code Est Pt Level 4 (35099) Complex EM visit Add On G2211 Diagnoses Spondyloarthritis M47.819 Other penitentiary (current) drug therapy Z79.899 Coccydynia M53.3 Greater trochanteric bursitis of both hips M70.61; M70.62 Lateral epicondylitis of both elbows M77.11; M77.12 CPT Codes Coding - 95011 - Bilateral Large Joint: 18608 - Bilateral Large Joint ([id number]) Coding - 52072 - Bilateral Large Joint: 52885 - Bilateral Large Joint ([id number])
[2025-05-27 10:37] VITALS: BP 100/80; PULSE 78; O2SAT 100; BMI 21.3
--- OUTSIDE RECORDS SUMMARY | 2025-05-27 11:49 | XMS_ITS | Clinical Summary ---
Author Organization [facility] Address [address] [place] [address] Phone Care Team Providers Care Washer Operator Name Role Phone Jeanette Calix MD Primary Care Provider [phone] Allergies Active Allergy Reactions Criticality Noted Date Comments Cabergoline High 09/22/2009 Other Reaction(s): Myalgia and Joint Pain Medications ALBUTEROL INHL Inhale into the lungs. Active fluticasone propionate (FLOVENT INHL) Inhale into the lungs. Active bromocriptine (PARLODEL) 2.5 mg tablet 06/25/20 19 Active cholecalciferol (VITAMIN D-3) 1,250 mcg (50,000 unit) capsule Take 1 Capsule by mouth once a week. 08/23/20 24 Active cyanocobalamin, vitamin B-12, 1,000 mcg tablet, sublingual Place 1 Tablet under the tongue daily. 08/23/20 24 Active doxepin (SINEquan) 150 mg capsule Take 150 mg by mouth at bedtime. Active levothyroxine (SYNTHROID, LEVOTHROID) 125 mcg tablet Take 1 Tab by mouth daily. Take 1.5 tablets on Monday09/06/20 15 Active linaCLOtide (Linzess) 290 mcg capsule 06/17/20 19 Active LORazepam (ATIVAN) 0.5 mg tablet Take 0.5 mg by mouth at bedtime as needed. Active metFORMIN (GLUCOPHAGE) 500 mg tablet Take 1 Tab by mouth daily. 09/06/20 15 Active ondansetron ODT (ZOFRAN-ODT) 4 mg disintegrating tablet 07/15/20 19 Active sertraline (ZOLOFT) 100 mg tablet Take 100 mg by mouth daily. Active Zepbound 5 mg/0.5 mL injectionIndicatio ns:Type 2 diabetes mellitus with obesity [place] [facility]Over weight ADMINISTER 5 MG UNDER THE SKIN EVERY 7 DAYS 2 mL 1 04/25/20 25 Active sucralfate (CARAFATE) 1 gram tablet Take 1 Tablet by mouth 4 times daily for 360 days. 05/14/20 24 025 Active Problems Problem Noted Date Diagnosed Date Asthma 11/07/2024 Abdominal wall mass of right upper quadrant 02/2020 Localized edema 04/30/2020 Scar of abdominal skin 02/13/2018 Morbid obesity [place] [place] [facility] [place] 2013 Overview (11/07/2024): BMI 44.01 on 12/24/12. Cataract, diabetic [place] [facility] [place] Type 2 diabetes mellitus, co ntrolled, with ophthalmic manifestations [place] [facility] [place] 01/02/2013 Overview (11/07/2024): cataract Amenorrhea-hyperprolactinemia syndrome ([facility] [place] 05/29/2012 Obesity, morbid ([facility] [place] [facility] [place]) 01/13 Hypercholesteremia 08/28/2008 Anterior pituitary disorder [place] [place] 2005 Hypothyroidism 11/17/2005 Controlled type 2 diabetes m ellitus without complication ([facility] [place], [facility] V28) 11/08/2005 Overview (11/07/2024): Diagnosed 2003 Thyrotoxicosis 11/08/2005 Immunizations Name Administration Dates Next Due Moderna SARS-CoV-2 COVID-19, mRNA, LNP-S, preservative free 03/10/2021,02/10/2021 Pneumococcal polysaccharide 23 valent (Pneumovax 23) 2yo and older 07/12/2005 Td Tetanus diptheria (Tdvax) 7yo and older 07/12 Surgical History Surgery Date Site/Laterality Comments SECTION PROCEDURE: CA DELIVERY ONLY; COMMENT: times 2 OTHER SURGICAL HISTORY PROCEDURE: CA LIG/TRNSXJ FLP TUBE ABDL/VAG APPR UNI/BI TUBAL LIGATION PROCEDURE: HISTORICAL TUBAL LIGATION BREAST RECONSTRUCTION PROCEDURE: BREAST RECONSTRUCTION; COMMENT: reduction LAPAROSCOPIC GASTRIC BANDING 2006 PROCEDURE: LAP ADJUSTABLE GASTRIC BAND ESOPHAGOGASTRODUODENOSCOPY 2011 PROCEDURE: CA ESOPHAGOGASTRODUODENOSCOPY TRANSORAL DIAGNOSTIC; COMMENT: normal [place] [facility] [place] ESOPHAGOGASTRODUODENOSCOPY 03/05/2014 PROCEDURE: CA ESOPHAGOGASTRODUODENOSCOPY TRANSORAL DIAGNOSTIC; COMMENT: Normal post gastric [...] 76 01/07/2025 1:31 PM EST Temperature 36.6 C (97.8 F) 01/07/2025 1:31 PM EST Respiratory Rate - - Oxygen Saturation - [...] AM EDT Office Visit Bariatric Surgery - [place] [facility] [address] [place] [id number] Jamal Arriaga MD [address] [address] Health Maintenance Due Date Last Done Comments [...] season) 2024 10/04/2021, 03/10/2021, 02/10/2021 Influenza Vaccine (Season Ended) 2025 09/12/2022, 08/27/2022, 11/15/2021, Additional history exists Colorectal Cancer [...] age to complete this topic Meningococcal B Vaccine Aged Out No l onger eligible based on patient's age to complete [...] Health Maintenance Results * Hemoglobin A1c (10/17/2023) [facility] Hemoglobin A1C 5.9 <=6.5 % Blood Venous blood specimen / Unknown Result [facility] Provider LAB BLOOD ORDERABLES Deja l Result * Urine Albumin Creatinine Ratio (04/30/2020) [facility] Urine Albumin Creatinine Ratio Abstracted Result [facility] Provider HEALTH MAINTENANCE Final Result * Annual BMP Blood Test (07/18/2019) [facility] Annual BMP Blood Test Abstracted Result [facility] Provider HEALTH MAINTENANCE Final Result * Colonoscopy (09/18/2015) [facility] Colonoscopy No Interpretation , Abstracted Anatomical Region Laterality Modality Other Result [facility] Provider HEALTH MAINTENANCE Final Result * (ABNORMAL) Lipid panel (06/16/2015) [facility] LDL/HDL Ratio 5(A) 0 - 4 Triglycerides 185(A) 0 - 150 mg/dL Cholesterol 181 0 - 200 mg/dL HDL 36(A) >=40 mg/dL LDL Cholesterol 108(A) 0 - 100 mg/dL Blood Venous blood specimen / Unknown Result [facility] Provider LAB BLOOD ORDERABLES Deja l Result * Cervical Cancer Screening: HPV (05/29/2012) [facility] Cervical Cancer Screening: HPV No Interpretation , Abstracted Result [facility] Provider HEALTH MAINTENANCE Final Result * Hepatitis C Screening (09/04/2001) [facility] Hepatitis C Screening Abstracted Result [facility] Provider HEALTH MAINTENANCE Final Result from Last 3 Months or Most Recently Relevant to Health Maintenance Insurance [employer] MEDICARE Member Subscriber Plan / Payer (Ef fective 2023-Present) Name:Cayla Linares I Relation to Subscriber:Self Name:Cayla Linares I Payer ID:[id number] Group ID:[id number] Type:Not on file Address: [place] [address] [place] [id number] Care Teams Washer Operator Relationship Specialty Start Date End Date Jeanette Calix MD [address] [place] [address] PCP - General Internal Medicine 07/18/19
--- OUTSIDE RECORDS SUMMARY | 2025-05-27 11:49 | XMS_ITS | Patient Health Record ---
Author Organization [employer] Address [address] [facility] [address] [place] [address] Support Name Relationship Address Phone Cayla Linares Guarantor Unknown [phone] Allergies Allergen (clinical drug ingredient) Drug/Non Drug [...] Status W/U Status Risk Notes Problem Hypothyroidism (40021005) Hypothyroidism, unspecified (E03.9) Active confirmed Problem Insomnia (823338538) Insomnia, unspecified (G47.00) Active confirmed Problem Body mass index 30.00 to 34.99 (921588322292978) Body mass index (BMI) 31.0-31.9, adult (Z68.31) Active confirmed Problem Body mass index 40+ - morbidly obese (596853035) Body mass index [BMI] 50.0-59.9, adult (Z68.43) Active confirmed Plan Of Treatment No Information Insurance Providers Payer Name Payer Address Payer Phone Subscriber Number Group Number Insured Name Patient Relationship to Insured Coverage Start Date Coverage End Date [facility] [address] [place], [place] [phone] [id number] Cayla Linares Self - patient is the insured Medical (General) History Medical History History ICD Code fibromyalgia insomnia pituitary microadenoma and sees Dr. Romina milligan at endocrinology anxiety/depression hypothyroidism right Achilles tendon injury Surgical History Surgery Date(Month/Year) jonatan landry gastric bypass by Dr. Arriaga 2012
--- OUTSIDE RECORDS SUMMARY | 2025-05-27 11:49 | XMS_ITS | Clinical Summary ---
Author Organization [facility] Address [address] [place] [phone] Phone Care Team Providers Care Miller Helper Name Role Phone Winston Dillard MD Primary Care Provider [phone] Allergies Active Allergy Reactions Criticality Noted Date [...] Gm, 0 Refills, Maintenance, 02/19/24 8:24:00 EDT, [facility] #[id number], Partial fill upon patient request if the prescription is for a schedule II opioid drug., Topically to feet as directe... 4 Active Cholecalciferol (Vitamin D3) 1.25 MG (43264 UT) capsule Take 1 capsule by mouth [...] Replace Required Details, Route to Pharmacy Electronically, [facility] #[id number], 165, cm, 03... 3 Active ARIPiprazole (ABILIFY) [...] Mass Index - - Plan of Treatment Health Maintenance Due Date Last Done Comments Breast Cancer Screening 1969 Hepatitis B Vaccine (1 of 3 - 19+ 3-dose series) 1988 Pneumococcal Vaccine: 50+ Ye ars (2 of 2 - PCV) 07/12/2006 07/12/2005 Colorectal Cancer Screening: Annual FOBT 2018 Colorectal Cancer Screening: Sigmoidoscopy 2018 Diabetes: Hemoglobin A1C 11/15/2024 10/17/2023 Diabetes: Ophthalmology Exam 11/15/2024 Diabetes: Pedal Pulse Checked 11/15/2024 Diabetes: Sensory Foot Exam 11/15/2024 Diabetes: Visual Foot Exam 11/15/2024 Influenza Vaccine (#1) 2025 , 11/15/2021, 01/27/2020 Colorectal Cancer Screening: Colonoscopy 07/11/2034 07/11/2024 Pneumococcal Vaccine: Peds ( 0 to 5 Years) and At-Risk Patients (6 to 49 Years) Discontinued 07/12/2005 Insurance [facility] Care Teams Miller Helper Relationship Specialty Start Date End Date Winston Dillard MD [address] [place] [id number] PCP - General Internal Medicine 07/12/24
--- OUTSIDE RECORDS SUMMARY | 2025-05-27 11:49 | XMS_ITS | Clinical Summary ---
Author Organization [facility] Address [address] [place] [address] Care Team Providers Care Ore Miner Blasting Name Role Phone Unavailable Primary Care Provider [...] 2014 Imm-Zoster, Recombinant (1 of 2) 2019 [id number] (3 - season) 2024 021, 02/10/2021 Imm-Influenza (#1) 2024 08/26/2020 Alcohol and Drug Screen 11/27/2024 Depression Annual Screen 11/27/2024 Cervical Ablation/Cold-Knife Conization Discontinued Cervical Cryotherapy Discontinued Colposcopy Discontinued Endometrial Biopsy Discontinued Excision/Leep Discontinued HPV Genotyping Discontinued Vaginal Pap Discontinued Vulvoscopy Discontinued [facility]
== END 2025-05-27 11:12 | disposition home or self-care (01) ==
LOC: HO.RHES 10:35
PROVIDERS: PCP Internal Medicine; Visit Provider Internal Medicine Rheumatology
DX: M47.819 Spondylosis without myelopathy or radiculopathy, site unspecified (principal); M53.3 Sacrococcygeal disorders, not elsewhere classified; M70.62 Trochanteric bursitis, left hip; M70.61 Trochanteric bursitis, right hip; Z79.899 Other long term (current) drug therapy; M77.11 Lateral epicondylitis, right elbow; M77.12 Lateral epicondylitis, left elbow
CPT/HCPCS: 20610; 99214

== ENCOUNTER 2025-05-27 10:35 | Outpatient (REF) | payer OTHER, SELFPAY ==
[2025-05-27 14:46] LABS: Baso%MD 0.7 %; Eos%MD 1.6 %; Hematocrit 36.1 % (37.0-47.0); Hemoglobin 11.4 g/dl (12.0-16.0); IG%MD 0.2 %; Lymph%MD 48.9 %; Mean Corpuscular HGB Conc 31.6 g/dl (31.0-35.0); Mean Corpuscular Hemoglobin 22.5 pg (27.0-33.0); Mean Corpuscular Volume 71.3 fL (80.0-98.0); Mono%MD 9.1 %; NRBC Abs Auto 0.000 X10*3/uL (0.0-0.012); NRBC Pct Auto 0.0 /100WBC (0.0-0.2); Neut%MD 39.5 %; Platelet Count 233 X10*3/uL (160-400); Red Blood Count 5.06 X10*6/uL (4.20-5.50); White Blood Count 4.5 X10*3/uL (4.8-10.8)
[2025-05-27 15:24] LABS: Alanine Aminotransferase 26 U/L (0-31); Aspartate Amino Transferase 30 U/L (5-31); Estimated Glomerular Filt Rate > 60
[2025-05-27 15:31] LABS: Band Neutrophils Percent 0 % (3-5); Basophils Percent Manual 1 % (0-2); Eosinophils Percent Manual 1 % (0-4); Lymphocytes Absolute Manual 2.4 X10*3/uL (1.2-4.9); Lymphocytes Percent Manual 53 % (20-40); Monocytes Absolute Manual 0.1 X10*3/uL (0.1-1.2); Monocytes Percent Manual 3 % (2-11); Neutrophils Absolute Manual 1.9 X10*3/uL (2.0-8.3); Neutrophils Percent Manual 42 % (45-73)
[2025-05-27 15:32] LABS: Acanthocytes 2+ (3-5) /OIF; RBC Morphology NOTED; Schistocytes 1+ (0-2) /OIF
== END 2025-05-27 10:36 | disposition home or self-care (01) ==
LOC: HO.HKASLDS 10:35
PROVIDERS: PCP Internal Medicine; Visit Provider Internal Medicine Rheumatology
DX: M70.61 Trochanteric bursitis, right hip (principal); M70.62 Trochanteric bursitis, left hip; M47.819 Spondylosis without myelopathy or radiculopathy, site unspecified; M77.11 Lateral epicondylitis, right elbow; M77.12 Lateral epicondylitis, left elbow; M53.3 Sacrococcygeal disorders, not elsewhere classified; Z79.899 Other long term (current) drug therapy
CPT/HCPCS: 20610; 36415; 82565; 84450; 84460; 85007; 85027; 85652; 86140; 99212; J2003; J3300

== ENCOUNTER 2025-07-29 13:26 | Outpatient (RCR) | payer OTHER, SELFPAY ==
--- NOTE | 2025-07-02 15:18 | MHC.PT.EP ---
[facility] [place] Office [place] Office [place] Office [address] Rima Beasley [address] [phone] F: [phone] F: [phone] F: [phone] F: [phone] Physical Therapy Plan of Care Date of Evaluation: 07/02/25 Date of Surgery: Diagnosis: Sacrococcygeal disorders, not elsewhere classified Assessment: Pt is a pleasant 55yo F who presents to PT with back pain. She reports history of R achilles surgery in 2019 and reports she wears a boot daily which may be impacting her walking. She presents to PT with current impairments in pain, decreased lumbar ROM, decreased muscle length, decreased core stabilization, decreased strength, soft tissue restrictions, impaired posture, and impaired gait. She is limited functionally by prolonged sitting, walking > 5 min, stair navigation, bending, and sleeping. She is a good candidate for skilled PT in order to address current impairments to facilitate return to PLOF. She is recommended to be seen 2x/week for 4 weeks and will be reassessed Frequency and Duration: The patient will be seen 2x/week for 4 weeks Short Term Goals: Pt will be I with HEP to promote self management of symptoms Pt will improve R hip flexion strength to at least 4+/5 Usp Goals: Pt will achieve full ROM all planes of lumbar spine Pt will tolerate prolonged sitting > 30 min with improved posture and pain < 2/10 Pt will tolerate prolonged standing and walking > 10 minutes with improved gait mechanics Treatment Plan: Modalities to reduce pain, spasms and effusion. Manual therapy to restore motion and function. Therapeutic exercise to improve strength and flexibility. Neuromuscular re-education for posture and balance. Therapeutic activities to return to functional activities of daily living. Electronically signed by: Etelvina Erwin, PT, DPT Please sign and return to therapist. Thank you for your referral.
--- NOTE | 2025-08-14 13:30 | MHC.PT.OD ---
[facility] [place] Office [place] Office [address] [facility] [address] [place] [address] [address] [facility] [phone] F: [phone] F: [phone] F: [phone] Physical Therapy Daily Note Diagnosis: Sacrococcygeal disorders, not elsewhere classified Date of Surgery: Date of Evaluation: 07/02/25 Date of Treatment: 08/14/25 Treatments to Date: 3 Cancellations to Date: No Shows to Date: Authorized Visits: Insurance End Date: Precautions/ Contraindications:Asthma, history of R achilles surgery, fibromyalgia, diabetes, rheumatoid arthritis Subjective: She presents wearing AFO on RLE but states today is a bad day for her L hip. Pain Score and Location: 06/05 currently back Objective Flowsheet: Tests & Measures Please see initial PT evaluation Exercises LTR 3x30 sec B SKTC 3x30 sec B Hooklying posterior pelvic tilt x 2 sets 5R, also trialed with legs extended; abs bracing SL clamshell with no added resistance x 2 sets 10R, PPT 5 sec hold 2x10 reps Glute set with abdominal brace x 2 sets 5R. Glute set 5 sec hold x 10 reps SAQ x 10 reps B Trial of hip abd extended painful so reduced to clamshell position *Issued and reviewed HEP posterior pelvic tilt and abdominal brace,SAQ, education for checking skin and inspection Educated to DC gastroc stretch on L due to report of long standing pain after activity, hx extensive surgery there; HEP sheets for home, trial of ice to L hip to ease sx at end of session Education for skin inspection pre/post activity; educated re: goals of therapy. Padding out AFO with pink foam padding, education to use taller sock for lower velcro aide to protect skin over use as pt expressing some soreness in the pack of her AFO padding. Pt reports hx thin skin and DMII, reports seeing a specialist due to hx of this post surgical Education for skin inspection, encouragement to use Modalities MHP to low back in supine x 5 min start of session Ice to L anterior/posterior/lateral hip at end of session x five minutes Assessment: 08/14/25: Cayla BERMAN for her appt today 08/14/25. She cancelled her appts on 08/05/25 and on 07/23/25. Due to inconsistent attendance she is being advised to follow up with referring provider Dr. Worthington at her upcoming appt 08/28. In total she attended 3 sessions of PT from start of care on 07/02/25. PT Plan: gentle low back stretching, core stabilization, hip/glute strengthening, balance/proprioception, gait training, MHP as needed, STM as needed, Ktape as needed Short Term Goals: Pt will be I with HEP to promote self management of symptoms Pt will improve R hip flexion strength to at least 4+/5 Corporate Administrator Goals: Pt will achieve full ROM all planes of lumbar spine Pt will tolerate prolonged sitting > 30 min with improved posture and pain < 2/10 Pt will tolerate prolonged standing and walking > 10 minutes with improved gait mechanics Electronically signed by: Margot Carr, PT, DPT
== END 2025-08-21 15:21 | disposition home or self-care (01) ==
LOC: HO.PTS 13:26
PROVIDERS: Visit Provider Internal Medicine Rheumatology
DX: M77.11 Lateral epicondylitis, right elbow (principal); M77.12 Lateral epicondylitis, left elbow; M53.3 Sacrococcygeal disorders, not elsewhere classified
CPT/HCPCS: 97110; 97116; 97162